=== PATIENT | male | born 1990 | race Two or more races ===

== ENCOUNTER 2018-01-27 22:53 | Emergency (ER) | payer OTHER ==
[~2018-01-27] VITALS: Ht 175.3 cm; Wt 56.7 kg
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
--- NOTE | 2018-01-28 00:20 | NUR ---
DR. SHEEHAN CANCELLED C-COLLAR.
[2018-01-28] MEDS ORDERED: ACETAMINOPHEN ES 500 MG TABLET ONE (00:22)
[2018-01-28] MEDS ORDERED: FLUORESCEIN SODIUM OPHTH 1 EA STRIP ONE (00:22)
[2018-01-28] MEDS ORDERED: TETRACAINE HCL/PF 0.5% UD 2 ML BOTTLE ONE (00:22)
[2018-01-28] MEDS ORDERED: FLUORESCEIN SODIUM OPHTH 1 EA STRIP OP ONE (00:30)
[2018-01-28] MEDS ORDERED: TETRACAINE HCL/PF 0.5% UD 2 ML BOTTLE RIGHTEYE ONE (00:30)
[2018-01-28] MEDS ORDERED: ACETAMINOPHEN 325 MG TABLET PO ONE (00:30)
[2018-01-28] MEDS ORDERED: ONDANSETRON 4 MG TAB.RAPDIS SL ONE (01:00)
[2018-01-28] MEDS ORDERED: ONDANSETRON 4 MG TAB.RAPDIS ONE (01:04)
[2018-01-28 01:30] LABS: BASOPHILS % (AUTO) 0.3 % (0.0-2.0); HEMATOCRIT 45 % (39-51); HEMOGLOBIN 15.3 g/dL (13.5-17.5); MEAN CORPUSCULAR HGB CONC 34 g/dl (31.0-36.0); MEAN CORPUSCULAR VOLUME 91 fL (80-96); MONOCYTES # (AUTO) 0.7 /CMM (0.1-1.30); MONOCYTES % (AUTO) 4.1 % (2.0-12.0); NEUTROPHILS # (AUTO) 14.9 /CMM (1.8-8.9); NEUTROPHILS % (AUTO) 89.6 % (43.0-81.0); PLATELET COUNT (AUTO) 286 /CMM (150-450); RDW COEFFICIENT OF VARIATION 12.6 (11.5-15.0); RED BLOOD CELL COUNT(AUTO) 4.93 MIL/uL (4.5-6.0); WHITE BLOOD COUNT (AUTO) 16.6 K/uL (4.3-11.0)
[2018-01-28 01:44] LABS: CALCIUM, SERUM 9.2 mg/dL (8.5-10.1); CREATININE 0.9 mg/dL (0.6-1.3); POTASSIUM 3.7 mmol/L (3.5-5.1)
[2018-01-28 01:46] LABS: INR 0.98 (0.87-1.13)
[2018-01-28 01:51] LABS: ALBUMIN 4.4 g/dL (3.4-5.0); BILIRUBIN,DIRECT 0.1 mg/dL (0.0-0.2); BILIRUBIN,TOTAL 0.5 mg/dL (0.2-1.0); TOTAL PROTEIN, SERUM 7.5 g/dL (6.4-8.2)
[2018-01-28] MEDS ORDERED: CEPHALEXIN MONOHYDRATE 500 MG CAPSULE PO ONE ×2 (02:00→02:36)
[2018-01-28] MEDS ORDERED: MISCELLANEOUS MED 1 EA EA XX ONE (02:00)
--- NOTE | 2018-01-28 02:17 | NUR ---
3,000 UNIT FACTOR VIII IVP OVER 5 MINS GIVEN ORDERED. VERIFIED BY DR. SHEEHAN AND RFID TECHNICIAN [employer] [facility]. PT TOLERATED MEDICATION. NO ASE AT THIS TIME. [employer] AT BEDSIDE.
--- NOTE | 2018-01-28 02:40 | NUR ---
Patient does not wish to proceed with medical care recommended by Dr. Rubio. Patient given information related to possible complications, up to and including , which could occur as a result of leaving the hospital at this time. Patient verbalizes understanding of risks involved due to leaving against medical advice. Patient has signed AMA form.
--- NOTE | 2018-01-28 02:42 | NUR ---
IV removed. Catheter intact and site benign. Pressure and 4x4 applied to site. No bleeding noted. Patient discharged under [employer] custody in stable condition. Written and verbal after care instructions given. Patient verbalizes understanding of instruction.
[2018-01-28 02:45] VITALS: BP 115/75
== END 2018-01-28 02:46 | disposition left against medical advice (07) ==
LOC: ER 22:56
DX: S02.2XXA Fracture of nasal bones, initial encounter for closed fracture (principal); S02.40CA Maxillary fracture, right side, initial encounter for closed fracture; S02.81XA Fracture of other specified skull and facial bones, right side, initial encounter for closed fracture; S16.1XXA Strain of muscle, fascia and tendon at neck level, initial encounter; S05.11XA Contusion of eyeball and orbital tissues, right eye, initial encounter; H11.31 Conjunctival hemorrhage, right eye; D66 Hereditary factor VIII deficiency; W20.8XXA Other cause of strike by thrown, projected or falling object, initial encounter; Y93.89 Activity, other specified; Y92.89 Other specified places as the place of occurrence of the external cause; Y99.8 Other external cause status
CPT/HCPCS: 36415; 70450-TC; 70486-TC; 72125-TC; 80048-TC; 80076-TC; 85025-TC; 85730-TC; A4606; Q0162; Z7610